=== PATIENT | female | born 1985 | race Caucasian/White ===

== ENCOUNTER 2020-10-22 12:42 | Emergency (ER) | payer OTHER, SELFPAY ==
[2020-10-22 12:50] VITALS: BP 128/89; PULSE 66; RESP 16; TEMP 36.5; O2SAT 98; BMI 35.1
[2020-10-22 13:07] LABS: Glucose Urine UA NEG (NEG); Leukocyte Esterase Urine 3+ (NEG); Nitrite Urine NEG (NEG); PH 6.5 (5.0-8.0); Urine Blood 1+ (NEG); Urine Ketones NEG (NEG); Urine Protein NEG (NEG-TRACE)
[2020-10-22 13:09] LABS: Appearance Urine HAZY; Color Urine YELLOW
[2020-10-22 13:17] LABS: Bacteria Urine 1+ /LPF; Mucus Urine 1+ /LPF; RBC Urine 0-2 /HPF (0); Squamous Epithelial Cell Urine 3+ /LPF
--- NOTE | 2020-10-22 17:02 | ED.ABDPAIN ---
HPI - Abdominal Pain General Chief Complaint: Abdominal Pain Stated Complaint: abd and back pain Time Seen by Provider: 10/22/20 17:02 History of Present Illness HPI narrative: Patient is a 34 year old female who just gave a month ago via who is breast feeding us complaining of right-sided flank pain which starts in her back and goes around to her front, x1 episode at 04:00. The pain made her throw up and she took some Tylenol. She states the pain has been resolving since then but she does still have some uncomfortableness. She carries the baby on the left side typically. She denies fevers, shortness of breath, chest pain, blood in her urine, bloody or black stools. She denies any increased frequency of urination or pain with urination. She states she has been bleeding on and off since giving and is not on control. Related Data Previous Rx's Medication Instructions Recorded cephalexin [Keflex] 500 mg PO QID #28 cap 10/22/20 Allergies Allergy/AdvReac Type Severity Reaction Status Date / Time No Known Allergies Allergy Verified 10/22/20 12:52 Review of Systems Review of Systems Yes all other systems are reviewed and are negative Physical Exam Vital Signs: Vital Signs: Last Vital Signs Temp 97.7 F 10/22/20 12:50 Pulse 66 10/22/20 12:50 Resp 16 10/22/20 12:50 BP 128/89 10/22/20 12:50 Pulse Ox 98 10/22/20 12:50 Body Mass Index 35.1 Const: General: cooperative, healthy appearing, comfortable, no acute distress and well developed Orientation/consciousness: patient oriented x3 Limitations: no limitations HENMT: Head: Yes normal to inspection Eyes: General: appearance normal, both eyes and all related structures Neck: Neck: Yes normal visual inspection and Yes full ROM Resp: Effort & Inspection: normal respiratory effort and able to speak in complete sentences Auscultation: clear to auscultation bilaterally Cardio: Rate: regular rate Rhythm: regular rhythm Heart sounds: normal S1 and S2 GI: Inspection: Yes normal to inspection (Well-healing scar in suprapubic area, no signs of infection noted) Palpation (GI): Soft to palpation and nontender : General: Yes no CVA tenderness (Bilaterally) Back/Spine/Pelvis: Back: no CVA tenderness (Bilaterally) Skin: General skin exam: no rashes or lesions noted Neuro: General: patient oriented x3 Extrem: General: Yes normal to inspection Course Course Course Narrative: 34-year-old female who just gave 1 month ago via who is also breast-feeding complaining I have 1 episode of a sharp right flank pain which radiated to the pelvis on the same side. Did have 1 episode of vomiting. Reports pain has been resolving since. Patient had no CVA tenderness. Physical exam was unremarkable. UA positive for UTI, will give Keflex at is it is safe in breast-feeding mom's. 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 MDM - Abdominal Pain Lab Data Labs: Lab Results 10/22/20 Range/Units 12:54 Urine Color YELLOW Urine Appearance HAZY Urine pH 6.5 (5.0-8.0) Ur Specific Marlin 1.020 (1.005-1.025) Urine Protein NEG (NEG-TRACE) MG/DL Urine Glucose (UA) NEG (NEG) MG/DL Urine Ketones NEG (NEG) MG/DL Urine Blood 1+ H (NEG) Urine Nitrite NEG (NEG) Ur Leukocyte Esterase 3+ H (NEG) Urine RBC 0-2 (0) /HPF Urine WBC 76-150 H (0-4) /HPF Ur Squamous Epith Cells 3+ /LPF Urine Bacteria 1+ /LPF Urine Mucus 1+ /LPF Discharge Plan Discharge Clinical Impression: UTI (urinary tract infection) Qualifiers: Urinary tract infection type: acute cystitis Hematuria presence: with hematuria Qualified Code(s): N30.01 - Acute cystitis with hematuria Patient Disposition: Home, Self-Care Instructions: Urinary Tract Infection in Women (ED) Prescriptions: New cephalexin [Keflex] 500 mg capsule 500 mg PO QID Qty: 28 RF: 0 Referrals: Nahed Santoyo MD [Primary Care Provider] - 2 days (Please follow-up with your PCP if you are not feeling better in the next couple of days.) [facility] Past Medical History Medical History delivery delivered No known health problems Social History Social History Advance Directives: No Advance Directives Information Provided: Yes
[2020-10-22] MEDS: cephALEXin 500 MG CAPSULE PO (17:20)
== END 2020-10-22 17:33 | disposition home or self-care (01) ==
PROVIDERS: Emergency Provider Emergency Medicine; PCP Family Medicine
DX: N30.01 Acute cystitis with hematuria (principal)
CPT/HCPCS: 81001; 87086; 99283